=== PATIENT | female | born 1965 | race Caucasian/White ===

== ENCOUNTER 2017-07-04 22:20 | Inpatient (IN) | payer BC ==
[~2017-07-04] VITALS: Ht 162.6 cm; Wt 73.3 kg
[2017-07-04] MEDS ORDERED: KETOROLAC 60 MG/2 ML VIAL. IM ONE (23:45)
[2017-07-04] MEDS ORDERED: BENZONATATE 100 MG CAPSULE. PO ONE (23:45)
[2017-07-05] VITALS (15 sets, daily range): BP systolic 69–106; BP diastolic 48–68
[2017-07-05] MEDS ORDERED: ONDANSETRON ODT 4 MG TAB.RAPDIS ONE (00:38)
[2017-07-05] MEDS ORDERED: KETOROLAC 30 MG/ML VIAL. IV ONE (00:45)
[2017-07-05] MEDS ORDERED: IV NORMAL SALINE 1,000ML 1,000 ML IV ONE ×2 (00:45→02:15)
[2017-07-05] MEDS ORDERED: ONDANSETRON PF 4 MG/2 ML VIAL. IV ONE (00:45)
--- NOTE | 2017-07-05 01:23 | EKG ---
[address] [address] Test Date: 2017-07-04 Test Time: 23:33:37 Pat Name: RANDALL HILTON Department: Room: Gender: F Impregnating Helper: MARQUES : 1965 Requested By: TATIANA PALMA Order Number: [id number] Reading MD: Measurements Intervals [place] Rate: 90 P: 35 HI: 142 QRS: 59 QRSD: 72 T: 6 QT: 342 QTc: 422 Interpretive Statements SINUS RHYTHM NO SPECIFIC ECG ABNORMALITIES RI6.01 Unconfirmed report No previous ECG available for comparison
[2017-07-05 01:30] LABS: INFLUENZA A PATIENT NEGATIVE (NEGATIVE); INFLUENZA B PATIENT NEGATIVE (NEGATIVE)
[2017-07-05 01:42] LABS: CALCIUM 8.7 mg/dL (8.5-10.1); CREATININE 0.7 mg/dL (0.6-1.0); GFR 87.9
[2017-07-05 01:43] LABS: POTASSIUM 4.3 mmol/L (3.5-5.1)
[2017-07-05 03:08] LABS: BASO # 0.1 x10^3/uL (0.0-0.2); BASO % 1 % (0-3); EOS # 0.1 x10^3/uL (0.0-0.7); EOS % 1 % (0-3); HEMATOCRIT 34.4 % (36.0-47.0); LYMPH # 1.5 x10^3/uL (1.0-4.8); LYMPH % 11 % (24-48); MEAN CORPUSCULAR HEMOGLOBIN 34 pg (25-35); MEAN CORPUSCULAR HGB CONC 35 g/dL (31-37); MEAN CORPUSCULAR VOLUME 98 fL (79-100); MONO # 1.5 x10^3/uL (0.0-1.1); MONO % 11 % (0-9); NEUT # 10.2 x10^3uL (1.8-7.7); NEUT % 76 % (31-73); PLATELET COUNT 334 x10^3/uL (140-400); RED BLOOD COUNT 3.52 x10^6/uL (3.50-5.40); RED CELL DISTRIBUTION WIDTH 13.8 % (11.5-14.5); WHITE BLOOD COUNT 13.3 x10^3/uL (4.0-11.0)
[2017-07-05] MEDS: IV NORMAL SALINE 1,000ML 1,000 ML IV SCH ×6 (03:15→20:30)
[2017-07-05 03:20] LABS: AMORPHOUS SEDIMENT,UR PRESENT /HPF; BACTERIA,URINE 0 /HPF (0-FEW); BILIRUBIN,URINE NEG (NEG); CLARITY,URINE HAZY; COLOR,URINE AMBER; GLUCOSE,URINE NEG (NEG); NITRITE,URINE NEG (NEG); RBC,URINE 0 /HPF (0-2); SQUAMOUS EPITHELIAL CELL,UR FEW /LPF; UROBILINOGEN,URINE 0.2 mg/dL (0.2 mg/dL); WBC,URINE RARE /HPF (0-4)
[2017-07-05] MEDS ORDERED: ONDANSETRON PF 4 MG/2 ML VIAL. IV PRN (04:30)
[2017-07-05] MEDS ORDERED: ACETAMINOPHEN 325 MG TABLET PO PRN (04:30)
--- NOTE | 2017-07-05 04:45 | PHYS DOC ---
Past History Past Medical History: Anemia, GERD, Migraines Past Surgical History: , Other Alcohol Use: None Drug Use: None Adult General Chief Complaint Chief Complaint: SHORTNESS OF BREATH HPI HPI Patient is a 52 year old female who presents with cough & shortness of breath. The patient reports 3 day history of illness with sore throat, cough productive of white sputum, shortness of breath when lying flat. She reports chest heaviness only with coughing. She denies fevers/chills, nausea, vomiting, diarrhea, dysuria. She has history of migraines for which she takes propranolol , which she took just prior to arrival here. She states her blood pressure runs low but doesn't know specific numbers. Nonsmoker. Review of Systems Review of Systems Constitutional: Denies fever or chills Eyes: Denies change in visual acuity HENT: Denies nasal congestion, reports sore throat Respiratory: Reports cough & shortness of breath Cardiovascular: Reports chest pain, denies edema GI: Denies abdominal pain, nausea, vomiting, or diarrhea : Denies dysuria Musculoskeletal: Denies back pain or joint pain Integument: Denies rash Neurologic: Denies headache, focal weakness or sensory changes All other systems were reviewed and found to be within normal limits, except as documented in this note. Current Medications Current Medications Current Medications Medications (Trade) Dose Ordered Sig/[facility] Start Time Stop Time Status Last Admin Dose Admin Benzonatate (Tessalon Perle) 100 mg 1X ONCE 07/04/17 23:45 07/04/17 23:46 DC 07/04/17 23:45 100 MG Ketorolac Tromethamine (Toradol) 30 mg 1X ONCE 07/05/17 00:45 07/05/17 02:37 DC 07/05/17 00:45 30 MG Ondansetron HCl (Zofran Odt) 4 mg STK-MED ONCE 07/05/17 00:38 07/05/17 00:39 DC Ondansetron HCl (Zofran) 4 mg 1X ONCE 07/05/17 00:45 07/05/17 02:37 DC 07/05/17 00:45 4 MG Sodium Chloride 1,000 ml @ 1,000 mls/hr 1X ONCE 07/05/17 02:15 07/05/17 03:14 DC 07/05/17 02:15 1,000 MLS/HR Allergies Allergies Allergies Coded Allergies Type Severity Reaction Last Updated Verified No Known Drug Allergies 07/04/17 No Physical Exam Physical Exam Constitutional: Well developed, well nourished, no acute distress, non-toxic appearance. appears drowsy. HENT: Normocephalic, atraumatic, bilateral external ears normal, oropharynx moist, posterior oropharynx erythematous without tonsillar enlargement/exudate, nose normal. Eyes: PERRLA, EOMI, conjunctiva normal, no discharge. Neck: supple, no stridor. no meningismus. Cardiovascular: RRR, no murmurs, no edema. Lungs & Thorax: LCTAB, no wheezing, no respiratory distress. Diminished in bases bilaterally. Abdomen: soft, nontender, nondistended. Skin: Warm, dry, no erythema, no rash. Back: No CVA tenderness. Extremities: No tenderness, no edema. Neurologic: Alert and oriented X 3, no focal deficits noted. Psychologic: Affect normal, judgement normal, mood normal. Current Patient Data Vital Signs Vital Signs Date Time Temp Pulse Resp B/P (MAP) Pulse Ox O2 Delivery O2 Flow Rate FiO2 07/04/17 22:59 99.3 102 20 95 Room Air Lab Results Laboratory Tests Test 07/05/17 00:22 07/05/17 03:03 White Blood Count 13.3 x10^3/uL (4.0-11.0) H Red Blood Count 3.52 x10^6/uL (3.50-5.40) Hemoglobin 12.0 g/dL (12.0-15.5) Hematocrit 34.4 % (36.0-47.0) L Mean Corpuscular Volume 98 fL (79-100) Mean Corpuscular Hemoglobin 34 pg (25-35) Mean Corpuscular Hemoglobin Concent 35 g/dL (31-37) Red Cell Distribution Width 13.8 % (11.5-14.5) Platelet Count 334 x10^3/uL (140-400) Neutrophils (%) (Auto) 76 % (31-73) H Lymphocytes (%) (Auto) 11 % (24-48) L Monocytes (%) (Auto) 11 % (0-9) H Eosinophils (%) (Auto) 1 % (0-3) Basophils (%) (Auto) 1 % (0-3) Neutrophils # (Auto) 10.2 x10^3uL (1.8-7.7) H Lymphocytes # (Auto) 1.5 x10^3/uL (1.0-4.8) Monocytes # (Auto) 1.5 x10^3/uL (0.0-1.1) H Eosinophils # (Auto) 0.1 x10^3/uL (0.0-0.7) Basophils # (Auto) 0.1 x10^3/uL (0.0-0.2) Urine Collection Type Unknown Urine Color Torrie Urine Clarity Hazy Urine pH 5.0 Urine Specific Cook 1.020 Urine Protein Neg (NEG-TRACE) Urine Glucose (UA) Neg mg/dL (NEG) Urine Ketones (Stick) Neg mg/dL (NEG) Urine Blood Neg (NEG) Urine Nitrite Neg (NEG) Urine Bilirubin Neg (NEG) Urine Urobilinogen Dipstick 0.2 mg/dL (0.2 mg/dL) Urine Leukocyte Esterase Trace (NEG) Urine RBC 0 /HPF (0-2) Urine WBC Rare /HPF (0-4) Urine Squamous Epithelial Cells Few /LPF Urine Amorphous Sediment Present /HPF Urine Bacteria 0 /HPF (0-FEW) Urine Mucus Mod /LPF Sodium Level 135 mmol/L (136-145) L Potassium Level 4.3 mmol/L (3.5-5.1) Chloride Level 98 mmol/L (98-107) Carbon Dioxide Level 28 mmol/L (21-32) Anion Gap 9 (6-14) Blood Urea Nitrogen 11 mg/dL (7-20) Creatinine 0.7 mg/dL (0.6-1.0) Estimated GFR (Cockcroft-Gault) 87.9 Glucose Level 151 mg/dL (70-99) H Calcium Level 8.7 mg/dL (8.5-10.1) Troponin I Quantitative < 0.017 ng/mL (0-0.055) SX-Adi-P-Type Natriuretic Peptide 266 pg/mL (0-124) H Influenza Type A (Rapid) Negative (NEGATIVE) Influenza Type B (Rapid) Negative (NEGATIVE) Group A Streptococcus Rapid Negative (NEGATIVE) Lactic Acid Level 1.1 mmol/L (0.4-2.0) EKG EKG interpreted by co: [id number]: NSR rate 90, no acute ST/T wave changes, normal intervals, no ectopy.[] Radiology/Procedures Radiology/Procedures CXR, 2 view: interpreted by me: no cardiomegaly, no infiltrate, no pneumothorax, no acute process. Course & Med Decision Making Course & Med Decision Making Pertinent Labs and Imaging studies reviewed. (See chart for details) The patient presents with sore throat & cough. She is well appearing other than being slightly drowsy. No focal findings on exam. Her blood pressure was low normal upon arrival, afebrile, not tachycardic. Obtained labs, CXR, EKG. She had no significant findings & we discussed discharge home but she was noted to have recurrence of hypotension to 60s/40s. She remains with normal pulse. Gave 1L normal saline initially, second liter administered & again she had drops to systolic blood pressure in 70s. When supine her blood pressure is 90s- 100s at times. RN documented orthostatic blood pressures in chart. Overall she is well appearing, awake, answers questions appropriately. She would actually like to go home & is resistant to staying in the hospital, but strongly recommend further monitoring of her blood pressure so that intervention could be performed if she becomes more symptomatic. Will continue maintenance fluids at 125 ml/hr, obtain additional labs including blood cultures & lactic acid. The patient reluctantly agrees with plan for admission. I am hopeful that she will improve with further monitoring, potentially this could be due to her propranolol, but we will continue to seek other serious causes. Discussed with Dr. De La O who agrees to accept for admission to observation status, to med/tele. For now we will hold off on antibiotic administration as no source of infection has been identified other than likely viral upper respiratory infection. The patient is being admitted in guarded condition. [] Dragon Disclaimer Dragon Disclaimer This electronic medical record was generated, in whole or in part, using a voice recognition dictation system. Departure Departure: Impression: Primary Impression: Hypotension Additional Impression: Upper respiratory infection Disposition: ADMITTED INPATIENT Admitting Physician: Piper De La O Condition: GUARDED Referrals: ARIELLA SPRING MD (PCP) Problem Qualifiers TATIANA PALMA MD Jul 05, 2017 04:45
[2017-07-05 05:09] LABS: BARBITURATES NEG (NEG); BENZODIAZEPINES NEG (NEG); CANNABINOIDS NEG (NEG); COCAINE NEG (NEG); METHADONE NEG (NEG); OPIATES NEG (NEG); PHENCYCLIDINE NEG (NEG)
[2017-07-05 05:13] LABS: AMPHETAMINE/METHAMPHETAMINE NEG (NEG)
[2017-07-05] MEDS ORDERED: IPRATRPIUM/ALBUTEROL 0.5/2.5MG 3 ML NEBU. NEB PRN (07:15)
[2017-07-05] MEDS ORDERED: Gabapentin (07:31)
[2017-07-05] MEDS ORDERED: amitriptyline (07:31)
[2017-07-05] MEDS ORDERED: Tramadol (07:31)
[2017-07-05] MEDS ORDERED: propranolol (07:31)
[2017-07-05] MEDS ORDERED: DULO30CA43 PO (07:44)
[2017-07-05] MEDS ORDERED: AMIT100T PO (07:44)
[2017-07-05] MEDS ORDERED: GABA600T2 PO (07:44)
[2017-07-05] MEDS ORDERED: PROP80CA3 PO (07:44)
--- NOTE | 2017-07-05 07:49 | RAD ---
Chest, 2 views, 07/04/2017: History: Cough, headache, lightheadedness The heart size and pulmonary vascularity are normal. There is mild atelectasis/infiltrate posteriorly in the lung bases. Obscuration of the posterior costophrenic angles is compatible with a tiny amount pleural fluid versus scarring. The upper lung ivory are clear. IMPRESSION: Mild bibasilar atelectasis/infiltrate.
[2017-07-05] MEDS: IPRATRPIUM/ALBUTEROL 0.5/2.5MG 3 ML NEBU. NEB PRN ×3 (08:53→20:06)
[2017-07-05] MEDS ORDERED: GLUCAGON,HUMAN RECOMBINANT 1 MG KIT. IV ONE (09:00)
[2017-07-05] MEDS: DULoxetine HCL 30 MG CAPSULE.DR PO SCH ×2 (13:44→21:49)
[2017-07-05] MEDS: GABAPENTIN 300 MG CAPSULE. PO SCH ×2 (13:44→21:49)
[2017-07-05] MEDS: GABAPENTIN 400 MG CAPSULE. PO SCH (14:05)
[2017-07-05] MEDS ORDERED: PANTOPRAZOLE IV PUSH 40 MG VIAL. IVP SCH (14:30)
[2017-07-05] MEDS ORDERED: IOHEXOL 300 MG/ML 75 ML VIAL. IV ONE (14:30)
[2017-07-05] MEDS ORDERED: CLINDAMYCIN HCL 150 MG CAPSULE PO SCH (14:30)
--- NOTE | 2017-07-05 14:58 | HP ---
ADMIT DATE: 07/05/2017 HISTORY OF PRESENT ILLNESS: The patient is a 52-year-old female patient who came to the Emergency Room early this morning with a complaint of cough and shortness of breath. She reported 3 days history of illness with sore throat, cough, productive of white sputum, shortness of breath when lying flat. She reports also chest heaviness only when coughing. She denies any fevers, chills, nausea, vomiting, diarrhea, or dysuria. She has history of migraines for which she takes propranolol, which she took prior to arrival to the Emergency Room. She stated that her blood pressure runs low, but does not know specific numbers. She was evaluated in the Emergency Room, was found to have leukocytosis. Her chest x-ray showed that she has heart size and pulmonary vascularity abnormal. There is mild atelectasis, infiltrate posterior at the lung bases, obscuration of the posterior costophrenic angle is compatible with tiny amount of pleural fluid versus scarring. The upper lung ivory are clear. The patient was admitted with marked hypotension, felt to be secondary to propranolol. She was given IV fluid and also given glucagon and was admitted for further evaluation and treatment. PAST MEDICAL HISTORY: Significant for migraine headache, gastroesophageal reflux disease, bronchial asthma, according to her obstructive sleep apnea and microcytic anemia. She has also esophageal stricture secondary to gastroesophageal reflux disease. PAST SURGICAL HISTORY: Significant for right shoulder surgery, , esophagogastroduodenoscopy, colonoscopy and esophageal dilatation. ALLERGIES: She has no known drug allergies. MEDICATIONS: She is currently on following medications: She is on amitriptyline 100 mg at bedtime, duloxetine 30 mg p.o. b.i.d., gabapentin 600 mg 3 times a day, propranolol 80 mg daily with an extended release capsule. FAMILY HISTORY: She has 2 brothers who are older and have what seemed to be of peptic ulcer disease and 1 sister who is younger has a problem with her gallbladder. Her father at age of 77, has diabetes, hypothyroidism and liver cancer. Mother at age of 75, has diabetes, hypothyroidism with pancreatic cancer. SOCIAL HISTORY: She is , has 2 daughters and 1 son. She does not smoke, drink alcohol or use recreational drugs. 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 REVIEW OF SYSTEMS: The patient denied any blurring of vision, cataract, glaucoma or macular degeneration. Denied any earache, tinnitus or sensorineural deafness. Denied any nosebleeds, stuffy nose or postnasal drip. Denied any sore throat, sore tongue, toothache, hoarseness of voice. Did complain of difficulty swallowing. She denied any nausea, vomiting, diarrhea or constipation. Denied any hematemesis, melena or hematochezia. Denied any dysuria, frequency or hematuria. She did complain of chest pain that has been going on and off with the pain radiating up to her neck. The pain is retrosternal radiating to her neck, did complain of also orthopnea. She sleeps on 3 pillows at night time. She did complain of shortness of breath, cough with clear sputum. IMPRESSION: In summary, this is a 52-year-old female patient who came in with a complaint of cough with shortness of breath. She also had sore throat and cough productive of white sputum and has also shortness of breath when lying flat. She did complain of chest pain that is retrosternal, radiating all the way to the neck that comes and goes, and has been going on for almost 2 weeks now. She is known to have severe gastroesophageal reflux disease. In fact, she had even esophageal stricture requiring esophageal dilatation. She was also extremely hypotensive with a systolic pressure of only 60. According to the Emergency Room physicians, she was given IV fluid and was given also a dose of glucagon. PLAN: My plan is to start her on IV antibiotic for what seemed to be a community-acquired pneumonia. I will also arrange for her to have a CT scan of the chest without contrast to do 2 sets of cardiac enzyme, consult the Cardiology team to evaluate her for this chest pain that is retrosternal, radiating to her back. I asked specifically if this feels similar to her esophageal acid reflux, and she stated that it is different. CHAVEZ MONET MD DR: MONICA/richard JOB#: [id number] / [id number]
--- NOTE | 2017-07-05 15:45 | RAD ---
CTA of the chest. 07/05/2017 Indication: Chest pain. Shortness of breath Comparison study: [Chest radiograph, earlier today] Technique: Multidetector CT imaging of the chest was performed following the administration of intravenous contrast. Multiple reconstructions including 3-D maximum intensity projection reconstructions were created on an independent workstation and reviewed. Findings: No filling defects within central pulmonary arteries or other evidence of acute pulmonary embolism is identified. The heart is normal in size. There is a moderate pericardial effusion. Note that study is not protocoled for evaluation of the pericardium. Maximal effusion thickness is seen posteriorly at approximately 1.9 cm. Mild fullness seen in the right hilum. Mild adenopathy is not excluded. There are small bilateral pleural effusions with underlying consolidation in the lower lobes. This may represent compressive atelectasis however underlying pneumonia is not excluded. No pneumothorax is identified. Limited visualization of the upper abdomen is unremarkable. Nodular opacities are noted in bilateral breasts. CT is limited for evaluation. Recommend correlation with recent mammogram. Impression: 1. No evidence of acute pulmonary embolism 2. Moderate pericardial effusion 3. Small bilateral pleural effusions with underlying consolidation, consistent with compressive atelectasis. Note that an underlying pneumonia cannot be excluded. Mild right hilar adenopathy may be present. 4. Nodular opacities involving the bilateral breasts. CT is of limited use for evaluation of the breasts. Recommend correlation with recent mammogram. PQRS Compliance Statement: One or more of the following individualized dose reduction techniques were utilized for this examination: 1. Automated exposure control 2. Adjustment of the mA and/or kV according to patient size 3. Use of iterative reconstruction technique
[2017-07-05] MEDS ORDERED: DULoxetine HCL 30 MG CAPSULE.DR PO SCH (21:00)
[2017-07-05] MEDS ORDERED: AMITRIPTYLINE HCL 100 MG TABLET PO SCH (21:00)
[2017-07-05] MEDS: LIDOCAINE (700MG/PATCH) PATCH. TD SCH (23:05)
[2017-07-06] VITALS (15 sets, daily range): BP systolic 80–118; BP diastolic 55–80
[2017-07-06 02:08] LABS: HEMOGLOBIN A1C 4.9 % (4.8-5.6)
[2017-07-06] MEDS: IV NORMAL SALINE 1,000ML 1,000 ML IV SCH ×2 (03:54→11:23)
[2017-07-06 05:35] LABS: BASO % 0 % (0-3); EOS # 0.1 x10^3/uL (0.0-0.7); EOS % 0 % (0-3); HEMOGLOBIN 11.9 g/dL (12.0-15.5); LYMPH # 1.7 x10^3/uL (1.0-4.8); LYMPH % 13 % (24-48); MEAN CORPUSCULAR HEMOGLOBIN 34 pg (25-35); MEAN CORPUSCULAR HGB CONC 33 g/dL (31-37); MEAN CORPUSCULAR VOLUME 101 fL (79-100); MONO # 1.1 x10^3/uL (0.0-1.1); MONO % 9 % (0-9); NEUT # 10.3 x10^3uL (1.8-7.7); NEUT % 78 % (31-73); PLATELET COUNT 292 x10^3/uL (140-400); RED BLOOD COUNT 3.56 x10^6/uL (3.50-5.40); RED CELL DISTRIBUTION WIDTH 14.2 % (11.5-14.5); WHITE BLOOD COUNT 13.2 x10^3/uL (4.0-11.0)
[2017-07-06 05:38] LABS: CALCIUM 8.1 mg/dL (8.5-10.1); CREATININE 0.7 mg/dL (0.6-1.0); GFR 87.9; POTASSIUM 3.9 mmol/L (3.5-5.1)
[2017-07-06] MEDS: IPRATRPIUM/ALBUTEROL 0.5/2.5MG 3 ML NEBU. NEB PRN ×2 (05:53→11:46)
[2017-07-06] MEDS ORDERED: LACTOBACILLUS RHAMNOSUS GG 1 CAPSULE. PO SCH (09:00)
[2017-07-06] MEDS ORDERED: AZITHROMYCIN 250 MG TABLET. PO SCH (09:00)
[2017-07-06] MEDS ORDERED: LIDOCAINE (700MG/PATCH) PATCH. TD SCH (09:00)
[2017-07-06] MEDS ORDERED: PANTOPRAZOLE 40 MG TABLET. PO SCH (09:00)
[2017-07-06] MEDS: DULoxetine HCL 30 MG CAPSULE.DR PO SCH (09:35)
[2017-07-06] MEDS: LIDOCAINE (700MG/PATCH) PATCH. TD SCH (09:36)
--- NOTE | 2017-07-06 10:05 | PDOC2 ---
TIMO CASTREJON REGISTERED NURSE RENAL 07/06/17 1005: CONSULT Date of Admission DATE: 07/06/17 TIME: 10:00 Reason for Consult: chest pain Problem List Problems Medical Problems: (1) Hypotension Status: Acute (2) Upper respiratory infection Status: Acute History of Present Illness Ms Pinedo is a 52 year old female who presented with complaints of 3 weeks low grade fever, productive cough, dyspnea and chest pain. She describes sharp midsternal pain increased with a deep breath and occasionally radiating to her neck, jaw and across her ears. She reports the discomfort is only with breathing. She denies PND or orthopnea. She reports some mild edema. She denies palpitations, lightheadedness or syncope. She was noted to have a significantly decreased blood pressure and has been taking propranolol for migraines. Pressures are improved to the low normal range off of propranolol. Past Medical History Significant for migraine headache, gastroesophageal reflux disease, bronchial asthma, according to her obstructive sleep apnea and microcytic anemia. She has also esophageal stricture secondary to gastroesophageal reflux disease. Past Surgical History Significant for right shoulder surgery, , esophagogastroduodenoscopy, colonoscopy and esophageal dilatation. Family History She has 2 brothers who are older and have what seemed to be of peptic ulcer disease and 1 sister who is younger has a problem with her gallbladder. Her father at age of 77, has diabetes, hypothyroidism and liver cancer. Mother at age of 75, has diabetes, hypothyroidism with pancreatic cancer. Social History She is , has 2 daughters and 1 son. She does not smoke, drink alcohol or use recreational drugs. 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 Current Medications Current Medications Ketorolac Tromethamine (Toradol) 60 mg 1X ONCE IM ; Start 07/04/17 at 23:45; Stop 07/05/17 at 00:40; Status DC Benzonatate (Tessalon Perle) 100 mg 1X ONCE PO Last administered on 07/04/17 23:45; Start 07/04/17 at 23:45; Stop 07/04/17 at 23:46; Status DC Ondansetron HCl (Zofran Odt) 4 mg STK-MED ONCE .ROUTE ; Start 07/05/17 at 00:38 ; Stop 07/05/17 at 00:39; Status DC Ondansetron HCl (Zofran) 4 mg 1X ONCE IV Last administered on 07/05/17 00:45 ; Start 07/05/17 at 00:45; Stop 07/05/17 at 02:37; Status DC Sodium Chloride 1,000 ml @ 1,000 mls/hr 1X ONCE IV Last administered on 00:45; Start 07/05/17 at 00:45; Stop 07/05/17 at 02:37; Status DC Ketorolac Tromethamine (Toradol) 30 mg 1X ONCE IV Last administered on 00:45; Start 07/05/17 at 00:45; Stop 07/05/17 at 02:37; Status DC Sodium Chloride 1,000 ml @ 1,000 mls/hr 1X ONCE IV Last administered on 02:15; Start 07/05/17 at 02:15; Stop 07/05/17 at 03:14; Status DC Sodium Chloride 1,000 ml @ 125 mls/hr Q8H IV Last administered on 07/06/17 03 :54; Start 07/05/17 at 03:15 Ondansetron HCl (Zofran) 4 mg PRN Q4HRS PRN IV NAUSEA/VOMITING Last administered on 07/05/17 14:36; Start 07/05/17 at 04:30; Stop 07/06/17 at 04:30 ; Status DC Sodium Chloride 1,000 ml @ 125 mls/hr Q8H IV Last administered on 07/05/17 12 :30; Start 07/05/17 at 04:30; Stop 07/06/17 at 04:30; Status DC Acetaminophen (Tylenol) 650 mg PRN Q4HRS PRN PO FEVER; Start 07/05/17 at 04:30 ; Stop 07/06/17 at 04:30; Status DC Albuterol/ Ipratropium (Duoneb) 3 ml RTQID PRN NEB WHEEZING Last administered on 07/06/17 05:53; Start 07/05/17 at 06:45 Albuterol/ Ipratropium (Duoneb) 3 ml RTQID PRN NEB SHORTNESS OF BREATH; Start 07/05/17 at 07:15; Status UNV Glucagon (Glucagen Kit) 2 mg 1X ONCE IV Last administered on 07/05/17 08:54; Start 07/05/17 at 09:00; Stop 07/05/17 at 09:01; Status DC Amitriptyline HCl (Elavil) 100 mg HS PO Last administered on 07/05/17 21:49; Start 07/05/17 at 21:00 Duloxetine HCl (Cymbalta) 30 mg BID PO ; Start 07/05/17 at 21:00; Stop 07/05/17 at 21:00; Status DC Gabapentin (Neurontin) 1,200 mg AFTRNOON PO ; Start 07/06/17 at 13:00; Stop 07/06/17 at 13:00; Status DC Duloxetine HCl (Cymbalta) 30 mg BID PO Last administered on 07/06/17 09:35; Start 07/05/17 at 13:30 Gabapentin (Neurontin) 600 mg QHS PO Last administered on 07/05/17 21:49; Start 07/05/17 at 14:00 Gabapentin (Neurontin) 1,200 mg AFTRNOON PO Last administered on 07/05/17 14: 05; Start 07/05/17 at 13:45 Fentanyl Citrate (Fentanyl 2ml Vial) 50 mcg PRN Q2HR PRN IV PAIN Last administered on 07/06/17 04:38; Start 07/05/17 at 14:15 Pantoprazole Sodium (PROTONIX VIAL for IV PUSH) 40 mg DAILYAC IVP Last administered on 07/05/17 15:03; Start 07/05/17 at 14:30; Stop 07/06/17 at 08:28 ; Status DC Ceftriaxone Sodium 1 gm/ Sodium Chloride 50 ml @ 100 mls/hr Q24H IV Last administered on 07/05/17 15:02; Start 07/05/17 at 14:30 Clindamycin HCl (Cleocin) 300 mg 1X PO Last administered on 07/05/17 15:03; Start 07/05/17 at 14:30 Azithromycin (Zithromax) 500 mg DAILY PO Last administered on 07/06/17 09:35; Start 07/06/17 at 09:00 Iohexol (Omnipaque 300 Mg/ml) 75 ml 1X ONCE IV Last administered on 07/05/17 15:23; Start 07/05/17 at 14:30; Stop 07/05/17 at 14:31; Status DC Lidocaine (Lidoderm) 1 patch DAILY TD ; Start 07/06/17 at 09:00; Stop 07/06/17 at 09:00; Status DC Lidocaine (Lidoderm) 1 patch DAILY TD Last administered on 07/05/17 23:05; Start 07/05/17 at 23:00 Lactobacillus Rhamnosus (Culturelle) 1 cap BID PO Last administered on 09:35; Start 07/06/17 at 09:00 Pantoprazole Sodium (Protonix) 40 mg DAILYAC PO Last administered on 07/06/17 09:38; Start 07/06/17 at 09:00 Active Scripts Active Reported Duloxetine Hcl 30 Mg Capsule.dr 30 Mg PO BIDPCLD Amitriptyline Hcl 100 Mg Tablet 100 Mg PO HS Gabapentin 600 Mg Tablet 600 Mg PO TID Propranolol Hcl 80 Mg Cap.sa.24h 80 Mg PO DAILY Allergies: Coded Allergies: No Known Drug Allergies (Unverified , 07/04/17) Review of System as per HPI or negative General: Alert, Oriented X3, Cooperative, No acute distress HEENT: Atraumatic, EOMI Lungs: Other (decreased left base otherwise clear) Heart: Regular rate, Normal S1, Normal S2, Other (no rubs) Abdomen: Normal bowel sounds, Soft, No tenderness Extremities: Other (trace edema, normal pulses) Neuro: Normal speech, Strength at 5/5 X4 ext Psych/Mental Status: Mental status NL, Mood NL VITALS Vital Signs Date Time Temp Pulse Resp B/P (MAP) Pulse Ox O2 Delivery O2 Flow Rate FiO2 07/06/17 06:18 96 22 107/61 (76) 91 Nasal Cannula 4.0 07/06/17 04:13 99.0 Labs Laboratory Tests Test 07/05/17 00:22 07/05/17 03:03 07/05/17 04:50 07/05/17 05:36 White Blood Count 13.3 x10^3/uL (4.0-11.0) Red Blood Count 3.52 x10^6/uL (3.50-5.40) Hemoglobin 12.0 g/dL (12.0-15.5) Hematocrit 34.4 % (36.0-47.0) Mean Corpuscular Volume 98 fL (79-100) Mean Corpuscular Hemoglobin 34 pg (25-35) Mean Corpuscular Hemoglobin Concent 35 g/dL (31-37) Red Cell Distribution Width 13.8 % (11.5-14.5) Platelet Count 334 x10^3/uL (140-400) Neutrophils (%) (Auto) 76 % (31-73) Lymphocytes (%) (Auto) 11 % (24-48) Monocytes (%) (Auto) 11 % (0-9) Eosinophils (%) (Auto) 1 % (0-3) Basophils (%) (Auto) 1 % (0-3) Neutrophils # (Auto) 10.2 x10^3uL (1.8-7.7) Lymphocytes # (Auto) 1.5 x10^3/uL (1.0-4.8) Monocytes # (Auto) 1.5 x10^3/uL (0.0-1.1) Eosinophils # (Auto) 0.1 x10^3/uL (0.0-0.7) Basophils # (Auto) 0.1 x10^3/uL (0.0-0.2) Urine Collection Type Unknown Urine Color [place] Urine Clarity Hazy Urine pH 5.0 Urine Specific [place] 1.020 Urine Protein Neg (NEG-TRACE) Urine Glucose (UA) Neg mg/dL (NEG) Urine Ketones (Stick) Neg mg/dL (NEG) Urine Blood Neg (NEG) Urine Nitrite Neg (NEG) Urine Bilirubin Neg (NEG) Urine Urobilinogen Dipstick 0.2 mg/dL (0.2 mg/dL) Urine Leukocyte Esterase Trace (NEG) Urine RBC 0 /HPF (0-2) Urine WBC Rare /HPF (0-4) Urine Squamous Epithelial Cells Few /LPF Urine Amorphous Sediment Present /HPF Urine Bacteria 0 /HPF (0-FEW) Urine Mucus Mod /LPF Sodium Level 135 mmol/L (136-145) Potassium Level 4.3 mmol/L (3.5-5.1) Chloride Level 98 mmol/L (98-107) Carbon Dioxide Level 28 mmol/L (21-32) Anion Gap 9 (6-14) Blood Urea Nitrogen 11 mg/dL (7-20) Creatinine 0.7 mg/dL (0.6-1.0) Estimated GFR (Cockcroft-Gault) 87.9 Glucose Level 151 mg/dL (70-99) Calcium Level 8.7 mg/dL (8.5-10.1) Troponin I Quantitative < 0.017 ng/mL (0-0.055) RW-Tgn-V-Type Natriuretic Peptide 266 pg/mL (0-124) Vitamin B12 Level pg/mL (247-911) 25-Hydroxy Vitamin D Total 35.5 ng/mL (30-100) Urine Opiates Screen Neg (NEG) Urine Methadone Screen Neg (NEG) Urine Barbiturates Neg (NEG) Urine Phencyclidine Screen Neg (NEG) Urine Amphetamine/Methamphetamine Neg (NEG) Urine Benzodiazepines Screen Neg (NEG) Urine Cocaine Screen Neg (NEG) Urine Cannabinoids Screen Neg (NEG) Urine Ethyl Alcohol Neg (NEG) Influenza Type A (Rapid) Negative (NEGATIVE) Influenza Type B (Rapid) Negative (NEGATIVE) Group A Streptococcus Rapid Negative (NEGATIVE) Lactic Acid Level 1.1 mmol/L (0.4-2.0) Nasal Screen MRSA (PCR) Negative (Negative) Hemoglobin A1c 4.9 % (4.8-5.6) Ethyl Alcohol Level < 10 mg/dL (0-10) Test 07/05/17 15:00 07/05/17 19:35 07/06/17 05:10 Troponin I Quantitative < 0.017 ng/mL (0-0.055) < 0.017 ng/mL (0-0.055) < 0.017 ng/mL (0-0.055) White Blood Count 13.2 x10^3/uL (4.0-11.0) Red Blood Count 3.56 x10^6/uL (3.50-5.40) Hemoglobin 11.9 g/dL (12.0-15.5) Hematocrit 36.0 % (36.0-47.0) Mean Corpuscular Volume 101 fL (79-100) Mean Corpuscular Hemoglobin 34 pg (25-35) Mean Corpuscular Hemoglobin Concent 33 g/dL (31-37) Red Cell Distribution Width 14.2 % (11.5-14.5) Platelet Count 292 x10^3/uL (140-400) Neutrophils (%) (Auto) 78 % (31-73) Lymphocytes (%) (Auto) 13 % (24-48) Monocytes (%) (Auto) 9 % (0-9) Eosinophils (%) (Auto) 0 % (0-3) Basophils (%) (Auto) 0 % (0-3) Neutrophils # (Auto) 10.3 x10^3uL (1.8-7.7) Lymphocytes # (Auto) 1.7 x10^3/uL (1.0-4.8) Monocytes # (Auto) 1.1 x10^3/uL (0.0-1.1) Eosinophils # (Auto) 0.1 x10^3/uL (0.0-0.7) Basophils # (Auto) 0.0 x10^3/uL (0.0-0.2) Sodium Level 135 mmol/L (136-145) Potassium Level 3.9 mmol/L (3.5-5.1) Chloride Level 103 mmol/L (98-107) Carbon Dioxide Level 22 mmol/L (21-32) Anion Gap 10 (6-14) Blood Urea Nitrogen 8 mg/dL (7-20) Creatinine 0.7 mg/dL (0.6-1.0) Estimated GFR (Cockcroft-Gault) 87.9 Glucose Level 119 mg/dL (70-99) Calcium Level 8.1 mg/dL (8.5-10.1) Images 1. sinus rhythm without acute abnormalities 2. CTA - Impression: 1. No evidence of acute pulmonary embolism 2. Moderate pericardial effusion 3. Small bilateral pleural effusions with underlying consolidation, consistent with compressive atelectasis. Note that an underlying pneumonia cannot be excluded. Mild right hilar adenopathy may be present. 4. Nodular opacities involving the bilateral breasts. CT is of limited use for evaluation of the breasts. Recommend correlation with recent mammogram. Assessment/Plan 1. chest pain, atypical - CE neg, EKG without acute abnormalities, echo pending. 2. hypotension - improving off propranolol. suggest alternate rx for migraine mgmt as per IM. await echo for assessment of effusion. 3. pericardial effusion - echo pending, will likely need repeat limited in 6 weeks. 4. CAP - mgmt per IM Problems: RAIZA KHALIL MD 07/06/17 2102: CONSULT Allergies: Coded Allergies: No Known Drug Allergies (Unverified , 07/04/17) Assessment/Plan Patient seen and examined. Agree with BRAND EXECUTIVE's assessment and plan. Chest pain pleuritic in nature. 2-D echo showed normal LV systolic function and small pericardial effusion. No wall motion abnormalities noted on echo. Doubt ACS. Agree with holding propranolol secondary to hypotension. Continue treatment of pneumonia per IM. Thank you for your consultation. Problems: TIMO CASTREJON APRN Jul 06, 2017 10:05 RAIZA KHALIL MD Jul 06, 2017 16:22
--- NOTE | 2017-07-06 12:13 | EKG ---
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
[2017-07-06] MEDS ORDERED: traMADol 50 MG TABLET PO PRN (12:15)
[2017-07-06] MEDS ORDERED: GABAPENTIN 400 MG CAPSULE. PO SCH (13:00)
[2017-07-06] MEDS: GABAPENTIN 400 MG CAPSULE. PO SCH (13:12)
[2017-07-06] MEDS ORDERED: PROPRANOLOL 20 MG TABLET. PO SCH (13:30)
--- NOTE | 2017-07-06 13:33 | RAD ---
Indication: Severe headache. Axial imaging through the brain was performed without contrast. No prior studies are available for comparison. The ventricles and sulci are within normal limits. No sulcal effacement, midline shift or hemorrhage is detected. The cisterns are patent. The visualized paranasal sinuses demonstrate some mucosal thickening of right-sided ethmoid air cells. Impression: 1. No acute intracranial process is detected. 2. Ethmoid sinus mucosal disease. PQRS Compliance Statement: One or more of the following individualized dose reduction techniques were utilized for this examination: 1. Automated exposure control 2. Adjustment of the mA and/or kV according to patient size 3. Use of iterative reconstruction technique
--- NOTE | 2017-07-06 14:08 | CARD ---
APPROVED REPORT EXAM: Two-dimensional and M-mode echocardiogram with Doppler and color Doppler. Other Information Quality : AverageHR: 98bpm INDICATION Chest Pain 2D DIMENSIONS Left Atrium(2D)3.6 (1.6-4.0cm)IVSd1.0 (0.7-1.1cm) Aortic Root(2D)2.5 (2.0-3.7cm)LVDd3.7 (3.9-5.9cm) LVOT Diameter2.0 (1.8-2.4cm)PWd1.0 (0.7-1.1cm) LVDs2.7 (2.5-4.0cm)FS (%) 26.9 % SV31.7 mlLVEF(%)53.3 (>50%) Aortic Valve AoV Peak Chai.128.6cm/sAoV VTI24.5cm AO Peak GR.6.6mmHgLVOT Peak Chia.109.6cm/s LVOT VTI 19.10cmAO Mean GR.4mmHg ALICE (VMAX)2.19zc1REJ (VTI)2.36cm2 Mitral Valve MV E Dbfebozk868.3cm/sMV DECEL GWEB038tu MV A Velocity1.1cm/sE/A Dfkct545.9 Tricuspid Valve TR P. Qslhfess277hk/sRAP [id number] TR Peak Gr.28faToZEKX88umBw LEFT VENTRICLE The left ventricle is normal size. There is normal left ventricular wall thickness. Left ventricle sy stolic function is normal. The Ejection Fraction is 55-60%. There is normal LV segmental wall motion. The left ventricular diastolic function and filling is normal for age. RIGHT VENTRICLE The right ventricle is normal size. The right ventricular systolic function is normal. ATRIA The left atrium size is normal. The right atrium size is normal. The interatrial septum is intact wit h no evidence for an atrial septal defect or patent foramen ovale as noted on 2-D or Doppler imaging. AORTIC VALVE The aortic valve is normal in structure and function. Doppler and Color Flow revealed no significant aortic regurgitation. There is no significant aortic valvular stenosis. MITRAL VALVE The mitral valve is normal in structure. There is no evidence of mitral valve prolapse. There is no m itral valve stenosis. Doppler and Color-flow revealed trace mitral regurgitation. TRICUSPID VALVE The tricuspid valve is normal in structure and function. Doppler and Color Flow revealed trace tricus pid regurgitation. There is no pulmonary hypertension. The PA pressure was estimated at 17 mmHg. Ther e is no tricuspid valve prolapse or vegetation. There is no tricuspid valve stenosis. PULMONIC VALVE Doppler and Color Flow revealed trace pulmonic valvular regurgitation. There is no pulmonic valvular stenosis. GREAT VESSELS The aortic root is normal in size. The ascending aorta is normal in size. The IVC is normal in size a nd collapses >50% with inspiration. PERICARDIAL EFFUSION There is moderate left pleural effusion. There is a small circumferential pericardial effusion. Respi ratory variations seen of spectral doppler seen of the mitral and tricuspid valve. No diastolic colla pse seen in diastole of the Right Ventricle. Critical Notification Critical Value: No <Conclusion> Left ventricle systolic function is normal. The Ejection Fraction is 55-60%. There is normal LV segmental wall motion. There is moderate left pleural effusion. There is a small circumferential pericardial effusion. Respiratory variations seen of spectral dopple r seen of the mitral and tricuspid valve. No diastolic collapse seen in diastole of the Right Ventric le.
--- NOTE | 2017-07-07 06:26 | PN ---
DATE: 07/06/2017 SUBJECTIVE: The patient is still resting slightly propped up in bed, no apparent distress. She continued to complain of severe migraine headache. She denied any nausea, vomiting. Denied any photophobia. Her blood pressure is much improved and this morning it is up to 103/63. PHYSICAL EXAMINATION: GENERAL: When I examined her, she was pale, but no jaundice, cyanosis, or thyromegaly. No jugular venous distention. No limb edema. VITAL SIGNS: Her heart rate was 97, blood pressure was 103/63, temperature was 99, respiratory rate was 16, and oxygen saturation was 100% on room air. HEAD, EYES, EARS, NOSE, AND THROAT: Showed normocephalic, atraumatic. NECK: Supple. There is no neck rigidity and Kernig's sign was negative. HEART: Showed normal first and second heart sounds with no gallop, rub, or murmur. CHEST: Clear to auscultation. No crepitation or rhonchi. ABDOMEN: Distended, soft, nontender. No guarding or rigidity. No organomegaly. Hernial orifice intact. Bowel sounds normal. NEUROLOGIC: She was awake, alert, responding appropriately. Her cranial nerves intact. She moves all extremities without difficulty. Her intake was 4789. No output was recorded. LABORATORY DATA: As of this morning showed her white cell count continued to be slightly elevated at 13,200, hemoglobin 11.9, hematocrit 36, MCV 101, platelet count of 292,000 with a manual differential shows 78% polymorphs, 13% lymphocytes, and 9% monocytes. Her serum sodium was 135, potassium 3.9, chloride 103, bicarbonate 22, anion gap of 10, BUN 8, creatinine 0.7, estimated GFR was 88 mL per minute. Her glucose was 119. Calcium was 8.1. Her hemoglobin A1c was 4.9%. She has 3 sets of cardiac enzymes that were negative and ruled out myocardial infarction. Urinalysis was essentially unremarkable. Urine toxicology screen was negative. Her influenza A, B and group B streptococcus were negative and her nasal screen for MRSA by PCR was negative. Her urine culture showed growth of beta hemolytic Streptococcus group B, more than 100,000 colony forming units per mL, usually sensitive to penicillin and ampicillin. Her blood cultures are so far negative and sore throat culture showed only routine respiratory collin. The chest x-ray showed the heart size and pulmonary vascularity are normal. There is mild atelectasis/infiltrate still in the lung bases, obscuration of the posterior costophrenic angle, is compatible with tiny amount of pleural fluid versus scarring. The upper lung ivory are clear; however, CT angio of the chest showed that there is no evidence of acute pulmonary embolism. She has moderate pericardial effusion. She has small bilateral pleural effusion with underlying consolidation, consistent compression atelectasis underlying pneumonia cannot be excluded, mild right hilar adenopathy may be present. Nodular opacities involving the bilateral breast CT is of limited use for evaluation of the breast. Recommend correlation with recent mammogram. CHAVEZ MONET MD DR: MONICA/richard JOB#: [id number] / [id number]
== END 2017-07-06 15:15 | disposition short-term general hospital (02) | DRG 871 ==
LOC: ER 22:20 → ICU 07-05 02:55 → OBSVTOIN 07-05 09:28
PROVIDERS: ADMIT Family Medicine; ATTEND Family Medicine
DX: A41.9 Sepsis, unspecified organism (principal); J18.9 Pneumonia, unspecified organism; J90 Pleural effusion, not elsewhere classified; I31.3 Pericardial effusion (noninflammatory); I95.2 Hypotension due to drugs; J98.11 Atelectasis; K21.9 Gastro-esophageal reflux disease without esophagitis; G43.909 Migraine, unspecified, not intractable, without status migrainosus; G47.33 Obstructive sleep apnea (adult) (pediatric); J06.9 Acute upper respiratory infection, unspecified; R59.0 Localized enlarged lymph nodes; R07.89 Other chest pain; B95.1 Streptococcus, group B, as the cause of diseases classified elsewhere; J45.909 Unspecified asthma, uncomplicated; T44.7X5A Adverse effect of beta-adrenoreceptor antagonists, initial encounter; Z80.0 Family history of malignant neoplasm of digestive organs; Z83.3 Family history of diabetes mellitus; Y92.89 Other specified places as the place of occurrence of the external cause
CPT/HCPCS: 36415; 70450; 71020; 71275; 80048; 80307; 81001; 82306; 82607; 82947; 83036; 83605; 83880; 84484; 85025; 87040; 87070; 87086; 87641; 87804; 87880; 93005; 93306; 94640; 96361; 96374; 96375; C9113; G0378; G0379; G0480; J0456; J0696; J1610; J1885; J2405; J3010; J7620; Q9967; 99285-25; G0479; J7030